=== PATIENT | female | born 1940 | race Caucasian/White ===

== ENCOUNTER 2022-01-06 17:51 | Inpatient (IN) | payer MEDICARE ==
[2022-01-06 20:54] LABS: #Basophils 0.1 thou/uL (0.0-0.2); #Eosinphils 0.1 thou/uL (0.0-0.7); #Lymphocytes 1.1 thou/uL (1.20-3.40); #Monocytes 1.6 thou/uL (0.11-0.59); #Neutrophils 8.8 thou/uL (1.40-6.50); %Basophils 1.2 % (0.0-1.0); %Eosinophils 0.8 % (0.0-10.0); %Lymphocytes 9.4 % (21.0-51.0); %Monocytes 13.9 % (0.0-10.0); %Neutrophils 74.7 % (42.0-75.0); Hemoglobin 8.1 g/dL (12.0-16.0); Mean Corpuscular HGB CONC 31.6 g/dL (32.0-36.0); Mean Platelet Volume 8.1 fL (7.4-10.4); Platelet Count 349 thou/uL (130-400); RBC Distribution Width 17.7 % (11.5-14.5); White Blood Cell (WBC) Count 11.8 thou/uL (4.8-10.8)
[2022-01-06 21:17] LABS: ALT (SGPT) 69 U/L (8-55); AST (SGOT) 82 U/L (5-34); Albumin 2.4 g/dL (3.4-4.8); Alkaline Phosphatase 110 U/L (40-110); Anion Gap 17 mmol/L (10-20); BUN (Urea Nitrogen) 46 mg/dL (9.8-20.1); Bilirubin, Total 0.4 mg/dL (0.2-1.2); Calc. Creatinine Clearance 0 mL/min (70-130); Calcium 7.7 mg/dL (7.8-10.44); Carbon Dioxide 23 mmol/L (23-31); Chloride 93 mmol/L (98-107); Globulin 2.7 g/dL (2.4-3.5); Glucose 188 mg/dL (83-110); Potassium 5.2 mmol/L (3.5-5.1); Protein, Total 5.1 g/dL (5.8-8.1); Sodium 128 mmol/L (136-145)
[2022-01-06] MEDS ORDERED: Acetaminophen 325 MG TAB PO PRN (22:08)
[2022-01-06] MEDS ORDERED: Acetaminophen 650 MG Suppository PR PRN (22:08)
[2022-01-06] MEDS ORDERED: Ondansetron ODT 4 MG TAB PO PRN (22:08)
[2022-01-06 22:10] VITALS: BMI 47.7
[2022-01-06] MEDS ORDERED: Dextrose 50% Abboject 50 ML SYRINGE SLOW IVP PRN (22:13)
[2022-01-06] MEDS ORDERED: HumaLOG 300 UNITS/3 ML VIAL SC PRN ×2 (22:13)
[2022-01-06] MEDS ORDERED: Dextrose 5% in Water 1,000 ML IV PRN (22:13)
[2022-01-06] MEDS ORDERED: Octreotide Acetate 100 MCG/ML VIAL SLOW IVP SCH (22:15)
[2022-01-06] MEDS ORDERED: Midodrine HCl 5 MG TAB PO SCH (22:15)
[2022-01-06] MEDS: cefTRIAXone\\ROCEPHIN 1 GM VIAL IVPB SCH (22:16)
[2022-01-06 22:50] LABS: Lactic Acid 2.7 mmol/L (0.5-2.2)
[2022-01-06] MEDS: Albumin 25% 25 GM/100 ML BOT IVPB SCH (23:17)
[2022-01-07 04:03] LABS: Anion Gap 17 mmol/L (10-20); BUN (Urea Nitrogen) 47 mg/dL (9.8-20.1); Calc. Creatinine Clearance 43 mL/min (70-130); Calcium 7.9 mg/dL (7.8-10.44); Carbon Dioxide 24 mmol/L (23-31); Chloride 94 mmol/L (98-107); Glucose 146 mg/dL (83-110); Potassium 5.2 mmol/L (3.5-5.1); Sodium 130 mmol/L (136-145)
[2022-01-07] MEDS: Albumin 25% 25 GM/100 ML BOT IVPB SCH ×4 (04:21→20:59)
[2022-01-07 04:29] LABS: Band 8 % (5-11); Eosinophils 1 % (0-10); Hemoglobin 7.3 g/dL (12.0-16.0); Lymphocytes 14 % (21-51); MDiff Complete? YES; Mean Corpuscular HGB CONC 33.3 g/dL (32.0-36.0); Mean Corpuscular Hemoglobin 31.2 pg (27.0-31.0); Mean Corpuscular Volume 93.8 fL (78.0-98.0); Monocytes 8 % (0-10); Neutrophil 68 % (42-75); Platelet Count 316 thou/uL (130-400); RBC Distribution Width 17.6 % (11.5-14.5); Red Blood Cell (RBC) Count 2.33 mill/uL (4.20-5.40); White Blood Cell (WBC) Count 11.4 thou/uL (4.8-10.8)
[2022-01-07 04:50] LABS: Lactic Acid 2.3 mmol/L (0.5-2.2)
[2022-01-07] MEDS: Heparin 5,000 UNITS/ML VIAL SC SCH ×3 (10:03→20:44)
[2022-01-07] MEDS: Midodrine HCl 5 MG TAB PO SCH ×3 (10:03→20:43)
[2022-01-07] MEDS: Octreotide Acetate 100 MCG/ML VIAL SLOW IVP SCH ×3 (10:04→20:44)
[2022-01-07] MEDS: cefTRIAXone\\ROCEPHIN 1 GM VIAL IVPB SCH (10:04)
[2022-01-07] MEDS ORDERED: Ampicillin 2 GM in Sodium Chloride 0.9% 100 ML IVPB SCH (16:00)
[2022-01-07] MEDS ORDERED: Ampicillin 2 GM VIAL IVPB SCH (18:00)
[2022-01-07] MEDS: Ampicillin 2 GM in Sodium Chloride 0.9% 100 ML IVPB SCH (18:07)
[2022-01-07] MEDS: Ondansetron PF 4 MG/2 ML Vial IVP PRN (18:57)
[2022-01-07] MEDS: Rifaximin 550 MG TAB PO SCH (20:43)
[2022-01-07] MEDS: Liothyronine Sodium 25 MCG TAB PO SCH (20:44)
[2022-01-07] MEDS: Morphine 2 MG/ML VIAL SLOW IVP PRN (23:28)
[2022-01-07] MEDS: cefTRIAXone\\ROCEPHIN 2 GM in Sodium Chloride 0.9% 100 ML IVPB SCH (23:30)
[2022-01-07] MEDS ORDERED: cefTRIAXone\\ROCEPHIN 2 GM VIAL IVPB SCH (23:59)
[2022-01-08] MEDS: Ampicillin 2 GM in Sodium Chloride 0.9% 100 ML IVPB SCH ×3 (01:11→19:45)
[2022-01-08 04:54] LABS: Hemoglobin 6.1 g/dL (12.0-16.0); Mean Corpuscular HGB CONC 32.7 g/dL (32.0-36.0); Mean Corpuscular Hemoglobin 30.8 pg (27.0-31.0); Mean Platelet Volume 7.5 fL (7.4-10.4); Platelet Count 344 thou/uL (130-400); RBC Distribution Width 17.3 % (11.5-14.5); Red Blood Cell (RBC) Count 1.97 mill/uL (4.20-5.40); White Blood Cell (WBC) Count 11.4 thou/uL (4.8-10.8)
[2022-01-08 05:03] LABS: INR-International Normal Ratio 1.7
[2022-01-08 05:07] LABS: Anion Gap 18 mmol/L (10-20); BUN (Urea Nitrogen) 51 mg/dL (9.8-20.1); Calc. Creatinine Clearance 39 mL/min (70-130); Calcium 8.3 mg/dL (7.8-10.44); Carbon Dioxide 24 mmol/L (23-31); Chloride 93 mmol/L (98-107); Glucose 141 mg/dL (83-110); Potassium 5.3 mmol/L (3.5-5.1); Sodium 130 mmol/L (136-145)
[2022-01-08 05:29] LABS: HBCM Index 0.07 S/CO (0-0.79); HBSAg Index 0.22 S/CO (0-0.99); Hep A IgM AB Non-Reactive (NonReactive); Hep A IgM S/CO 0.14 S/CO (0-0.79); Hep B Surf Ag Non-Reactive S/CO (NonReactive); Hep C IgG Ab Non-Reactive (NonReactive); Hep C Index 0.16 S/CO (0-0.79); Hepatitis B Core IgM Abs Non-Reactive (NonReactive)
[2022-01-08 05:55] LABS: Band 3 % (5-11); Eosinophils 3 % (0-10); Lymphocytes 8 % (21-51); MDiff Complete? YES; Monocytes 10 % (0-10); Neutrophil 76 % (42-75)
[2022-01-08] MEDS ORDERED: Levothyroxine Sodium 75 MCG TAB PO SCH (06:00)
[2022-01-08] MEDS ORDERED: Pantoprazole 40 MG VIAL IVP SCH (09:00)
[2022-01-08] MEDS ORDERED: LOKELMA 10 GM PACKET PO SCH (10:15)
[2022-01-08] MEDS: Heparin 5,000 UNITS/ML VIAL SC SCH ×2 (10:17→15:27)
[2022-01-08] MEDS: Rifaximin 550 MG TAB PO SCH (10:17)
[2022-01-08] MEDS: Octreotide Acetate 100 MCG/ML VIAL SLOW IVP SCH ×2 (10:18→15:28)
[2022-01-08] MEDS: Midodrine HCl 5 MG TAB PO SCH ×2 (10:18→15:28)
[2022-01-08] MEDS: Liothyronine Sodium 25 MCG TAB PO SCH (10:18)
[2022-01-08] MEDS: cefTRIAXone\\ROCEPHIN 2 GM in Sodium Chloride 0.9% 100 ML IVPB SCH (12:06)
[2022-01-08] MEDS: Morphine 2 MG/ML VIAL SLOW IVP PRN ×3 (15:28→20:13)
[2022-01-08] MEDS: Ondansetron PF 4 MG/2 ML Vial IVP PRN (15:34)
[2022-01-08 20:10] VITALS: BP 99/61; TEMP 97.6
[2022-01-08] MEDS ORDERED: Heparin 5,000 UNITS/ML VIAL SC SCH (21:00)
== END 2022-01-08 20:40 | disposition hospice, inpatient (51) | DRG 682 ==
LOC: IMCU/EMU 20:00 → MSONC 01-08 18:12
PROVIDERS: ADMIT Internal Medicine; ATTEND Internal Medicine
PROC: 30233N1 Transfusion of Nonautologous Red Blood Cells into Peripheral Vein, Percutaneous Approach (ICD-10-PCS; principal; 2022-01-08)
DX: N17.9 Acute kidney failure, unspecified (principal); K76.7 Hepatorenal syndrome; E87.1 Hypo-osmolality and hyponatremia; C22.0 Liver cell carcinoma; I42.8 Other cardiomyopathies; I48.20 Chronic atrial fibrillation, unspecified; I13.0 Hypertensive heart and chronic kidney disease with heart failure and stage 1 through stage 4 chronic kidney disease, or unspecified chronic kidney disease; Z66 Do not resuscitate; Z51.5 Encounter for palliative care; Z20.822 Contact with and (suspected) exposure to COVID-19; K74.60 Unspecified cirrhosis of liver; E87.5 Hyperkalemia; E03.9 Hypothyroidism, unspecified; D69.6 Thrombocytopenia, unspecified; K72.90 Hepatic failure, unspecified without coma; E11.22 Type 2 diabetes mellitus with diabetic chronic kidney disease; N18.4 Chronic kidney disease, stage 4 (severe); I50.9 Heart failure, unspecified; Z95.0 Presence of cardiac pacemaker; Z88.8 Allergy status to other drugs, medicaments and biological substances; Z79.01 Long term (current) use of anticoagulants; Z79.4 Long term (current) use of insulin; Z79.890 Hormone replacement therapy; Z79.899 Other long term (current) drug therapy
CPT/HCPCS: 36415; 36416; 36430; 71045; 80048; 80074; 82105; 83605; 84300; 85025; 85610; 86850; 86900; 86901; 87040; 93005; 93010; C9113; J0290; J0696; J1644; J2270; J2354; J2405; J3490; P9016; P9047

== ENCOUNTER 2022-01-08 21:02 | Inpatient (IN) | payer OTHER ==
[2022-01-08] MEDS ORDERED: Scopolamine 1.5 mg/72 hour Patch TOP SCH (21:15)
[2022-01-08 21:16] VITALS: BMI 47.7
[2022-01-08] MEDS ORDERED: Ondansetron PF 4 MG/2 ML Vial IVP PRN (21:16)
[2022-01-08] MEDS: Morphine 4 MG/ML VIAL SLOW IVP SCH ×2 (22:22→23:24)
[2022-01-08] MEDS: Lorazepam 2 MG/ML VIAL SLOW IVP SCH (22:23)
[2022-01-09] MEDS: Lorazepam 2 MG/ML VIAL SLOW IVP SCH ×8 (00:29→17:05)
[2022-01-09] MEDS: Morphine 4 MG/ML VIAL SLOW IVP SCH ×13 (00:29→17:05)
[2022-01-09 08:19] VITALS: BP 90/55; TEMP 97.8
== END 2022-01-09 15:10 | disposition expired | DRG 951 ==
LOC: MSONC 21:02
PROVIDERS: ADMIT Family Medicine; ATTEND Family Medicine
DX: Z51.5 Encounter for palliative care (principal); Z66 Do not resuscitate; K76.7 Hepatorenal syndrome; N17.9 Acute kidney failure, unspecified; E87.1 Hypo-osmolality and hyponatremia; R78.81 Bacteremia; K74.60 Unspecified cirrhosis of liver; E11.9 Type 2 diabetes mellitus without complications; I48.91 Unspecified atrial fibrillation; E03.9 Hypothyroidism, unspecified; I10 Essential (primary) hypertension; E87.5 Hyperkalemia; B95.2 Enterococcus as the cause of diseases classified elsewhere; R16.0 Hepatomegaly, not elsewhere classified; Z95.0 Presence of cardiac pacemaker; Z88.8 Allergy status to other drugs, medicaments and biological substances; Z79.899 Other long term (current) drug therapy; Z79.4 Long term (current) use of insulin; Z79.890 Hormone replacement therapy; Z90.710 Acquired absence of both cervix and uterus; Z90.721 Acquired absence of ovaries, unilateral
CPT/HCPCS: J2060; J2270